=== PATIENT | female | born 1980 | race Two or more races ===

== ENCOUNTER → 2016-12-28 | Outpatient (CLI) | payer MEDICAID ==
[~2016-12-28] MED LIST: CHOL5000 PO; IBUP-1222 PO; LISI-170 PO
[2016-12-28 08:49] LABS: HEMOGLOBIN 14.2 g/dL (11.7-16.4); WHITE BLOOD COUNT 8.5 x10^3/uL (3.4-10)
[2016-12-28 08:50] LABS: ASPARTATE AMINO TRANSFERASE 10 U/L (15-37); BLOOD UREA NITROGEN 12 mg/dL (7-18)
== END | disposition home or self-care (01) ==
LOC: STAR 07:50
PROVIDERS: ATTEND Obstetrics & Gynecology
DX: Z30.2 Encounter for sterilization (principal); Z88.8 Allergy status to other drugs, medicaments and biological substances; R79.89 Other specified abnormal findings of blood chemistry
CPT/HCPCS: 36415; 80053; 84703; 85025

== ENCOUNTER 2017-07-08 18:15 | Emergency (ER) | payer MEDICAID ==
[~2017-07-08] VITALS: Ht 170.2 cm; Wt 103.3 kg
[2017-07-08] MEDS ORDERED: BACITRACIN ZINC OINT 500U/GM, 0.9 GM ONE (18:23)
[2017-07-08 19:12] LABS: BASOPHILS # (AUTO) 0.05 x10^3/uL (0-0.1); BASOPHILS % (AUTO) 0 % (0-1); EOSINOPHILS # (AUTO) 0.16 x10^3/uL (0-0.4); EOSINOPHILS % (AUTO) 1 % (1-7); LYMPHOCYTES # (AUTO) 3.21 x10^3/uL (1-3.4); LYMPHOCYTES % (AUTO) 28 % (22-44); MD NO; MEAN CORPUSCULAR HEMOGLOBIN 28.6 pg (27.0-34.8); MEAN CORPUSCULAR VOLUME 86.5 fL (80-100); MEAN PLATELET VOLUME 9.3 fL (7.4-10.4); MONOCYTES # (AUTO) 0.59 x10^3/uL (0.2-0.8); MONOCYTES % (AUTO) 5 % (2-9); NEUTROPHILS # (AUTO) 7.42 x10^3/uL (1.8-6.8); NEUTROPHILS % (AUTO) 65 % (42-75); PLATELET COUNT 302 x10^3/uL (130-400); RED BLOOD COUNT 4.85 x10^6/uL (3.82-5.3); RED CELL DISTRIBUTION WIDTH 12.9 % (9.6-15.2)
[2017-07-08 19:21] LABS: MICROSCOPIC INDICATED
[2017-07-08 19:24] LABS: ANION GAP 7 mmol/L (5-15); CALCIUM 8.5 mg/dL (8.5-10.1); CHLORIDE 108 mmol/L (98-107); CREATININE 1.08 mg/dL (0.55-1.02)
[2017-07-08 19:29] LABS: CULTURE INDICATED? NO
[2017-07-08 19:42] VITALS: BP 134/72
== END 2017-07-08 20:10 | disposition home or self-care (01) ==
LOC: ED 19:24
DX: M62.830 Muscle spasm of back (principal); I10 Essential (primary) hypertension; Z98.51 Tubal ligation status
CPT/HCPCS: 36415; 71046; 80048; 81001; 85025; 93005; 99285

== ENCOUNTER 2017-12-29 21:20 | Emergency (ER) | payer MEDICAID ==
[~2017-12-29] VITALS: Ht 167.6 cm; Wt 94.7 kg
[2017-12-29 21:30] VITALS: BP 148/92
[2017-12-29 21:53] LABS: CULTURE INDICATED? YES; MICROSCOPIC INDICATED
[2017-12-29 21:59] LABS: HCG UR SG 1.025 (1.003-1.030)
== END 2017-12-29 22:53 | disposition home or self-care (01) ==
LOC: ED 22:50
DX: J02.0 Streptococcal pharyngitis (principal); N30.01 Acute cystitis with hematuria; R05 Cough
CPT/HCPCS: 71046; 81001; 81025; 87086; 87880; 93005; 99285

== ENCOUNTER 2020-05-28 07:40 | Outpatient (CLI) | payer OTHER | END 2020-05-28 23:59 | disposition home or self-care (01) | LOC: CFH 07:40 | PROVIDERS: ATTEND Obstetrics & Gynecology | DX: Z12.31 Encounter for screening mammogram for malignant neoplasm of breast (principal) | CPT/HCPCS: 77067 ==

== ENCOUNTER → 2020-07-21 | Outpatient (CLI) | payer OTHER ==
[~2020-07-21] MED LIST changes: +CETI10TA18 PO; +DROS1TAB2 PO; +LOSA25TA25 PO; +METF500T17 PO; +NORE5TAB PO; +VALA10007 PO; +VIT500LI INJ; +Vitamin B-12 INJ
[2020-07-21 16:03] LABS: ALANINE AMINOTRANSFERASE 19 U/L (12-78); ALBUMIN 3.8 g/dL (3.4-5.0); ANION GAP 5 mmol/L (5-15); CALCIUM 8.5 mg/dL (8.5-10.1); CHLORIDE 108 mmol/L (98-107)
[2020-07-21 16:07] LABS: ALKALINE PHOSPHATASE 47 U/L (45-117); BILIRUBIN,TOTAL 0.1 mg/dL (0.2-1.0); TOTAL PROTEIN 8.1 g/dL (6.4-8.2)
[2020-07-21 16:10] LABS: BASOPHILS % (AUTO) 1 % (0-1); EOSINOPHILS % (AUTO) 1 % (1-7); LYMPHOCYTES % (AUTO) 24 % (22-44); MEAN CORPUSCULAR HEMOGLOBIN 29.9 pg (27.0-34.8); MEAN CORPUSCULAR HGB CONC 33.2 g/dL (32.4-35.8); MEAN PLATELET VOLUME 8.9 fL (7.4-10.4); MONOCYTES % (AUTO) 6 % (2-9); NEUTROPHILS % (AUTO) 68 % (42-75); PLATELET COUNT 307 x10^3/uL (130-400); RED BLOOD COUNT 4.72 x10^6/uL (3.82-5.3); RED CELL DISTRIBUTION WIDTH 14.2 % (9.6-15.2)
[2020-07-21 16:15] LABS: MD NO
== END | disposition home or self-care (01) ==
LOC: STAR 15:05
PROVIDERS: ATTEND Obstetrics & Gynecology
DX: Z01.812 Encounter for preprocedural laboratory examination (principal); Z20.822 Contact with and (suspected) exposure to COVID-19; N93.9 Abnormal uterine and vaginal bleeding, unspecified
CPT/HCPCS: 36415; 80053; 84703; 85025; U0003

== ENCOUNTER 2020-07-27 10:43 | Day surgery (SDC) | payer OTHER ==
[~2020-07-27] VITALS: Ht 175.3 cm; Wt 97.9 kg
[2020-07-27 11:16] LABS: HCG UR SG 1.027 (1.003-1.030)
[2020-07-27] MEDS ORDERED: CHLORHEXIDINE 15 ML UDC PO ONE (11:30)
[2020-07-27] MEDS ORDERED: LACTATED RINGERS 1,000 ML IV SCH (11:30)
[2020-07-27 11:31] VITALS: BP 119/70
[2020-07-27] MEDS ORDERED: FENTANYL PF 250 MCG/5ML ONE (12:55)
[2020-07-27] MEDS ORDERED: MIDAZOLAM 1 MG/ML, 2ML ONE (12:55)
[2020-07-27] MEDS ORDERED: LABETALOL 5MG/ML, 20ML IV PRN (13:00)
[2020-07-27] MEDS ORDERED: hydrALAzine 20 MG/ML, 1ML IV PRN (13:00)
[2020-07-27] MEDS ORDERED: HYDROmorphone 1 MG/ML, 1ML INJ IVPush PRN (13:00)
[2020-07-27] MEDS ORDERED: MEPERIDINE/PF 25MG/0.5ML IVPush PRN (13:00)
[2020-07-27] MEDS ORDERED: HALOPERIDOL 5 MG/ML IV PRN (13:00)
[2020-07-27] MEDS ORDERED: PROMETHAZINE 25 MG/ML, 1ML IVPush PRN (13:00)
[2020-07-27] MEDS ORDERED: ACETAMINOPHEN 325 MG TABLET PO PRN (13:00)
[2020-07-27] MEDS ORDERED: DIPHENHYDRAMINE 50 MG/ML, 1ML IVPush PRN (13:00)
[2020-07-27] MEDS ORDERED: OXYcodone 5 MG/5 ML ORAL.SOL UDC PO PRN (13:00)
[2020-07-27] MEDS ORDERED: BUPIVACAINE/PF 0.25% ONE (13:11)
[2020-07-27] MEDS ORDERED: SILVER NITRATE STICK TP ONE (13:11)
[2020-07-27] MEDS ORDERED: DEXAMETHASONE 4 MG/ML, 1ML ONE (13:32)
[2020-07-27] MEDS ORDERED: KETOROLAC 30 MG/1 ML ONE (14:10)
[2020-07-27] MEDS ORDERED: PROPOFOL 10 MG/ML, 20ML ONE (14:19)
[2020-07-27] MEDS ORDERED: CEFAZOLIN 1,000 MG ONE (14:19)
[2020-07-27] MEDS ORDERED: ONDANSETRON 2MG/ML, 2ML ONE ×2 (14:19→16:14)
[2020-07-27] MEDS ORDERED: OXYC1TAB14 PO (14:36)
[2020-07-27] MEDS ORDERED: ACETAMINOPHEN 650 MG/20.3 ML UDC ONE (14:59)
[2020-07-27] MEDS ORDERED: FENTANYL PF 100 MCG/2ML ONE (14:59)
[2020-07-27] MEDS ORDERED: OXYcodone 5 MG/5 ML ORAL.SOL UDC ONE (14:59)
[2020-07-27] MEDS ORDERED: OXYcodone/APAP 5/325MG TABLET PO PRN (15:00)
[2020-07-27] MEDS: FENTANYL PF 100 MCG/2ML IV PRN ×3 (15:02→15:14)
[2020-07-27] MEDS ORDERED: ONDANSETRON 2MG/ML, 2ML IVPush PRN (17:00)
== END 2020-07-27 16:50 | disposition home or self-care (01) ==
LOC: OUT 10:43
PROVIDERS: ATTEND Obstetrics & Gynecology
DX: N93.9 Abnormal uterine and vaginal bleeding, unspecified (principal); I10 Essential (primary) hypertension; Z79.899 Other long term (current) drug therapy; Z88.5 Allergy status to narcotic agent; Z90.79 Acquired absence of other genital organ(s)
CPT/HCPCS: 58563; 81025; J1100; J1885; J2250; J2405; J2704; J3010; J7120; J0690